=== PATIENT | male | born 1950 ===

== ENCOUNTER 2022-02-09 09:24 | Emergency (ER) | payer OTHER ==
[~2022-02-09] VITALS: Ht 172.7 cm; Wt 80.7 kg
[~2022-02-09 09:24] MED LIST: B COMPLETE1 TAB; LIPITOR20 MG; METOPROLOL SUC100 MG; NORVASC5 MG; SIDEROL TABLET1 TAB; SYNTHROID75 MCG
[2022-02-09] MEDS ORDERED: MEDROLPACK PO (14:52)
[2022-02-09] MEDS ORDERED: KETO10TA2 PO (14:52)
[2022-02-09] MEDS ORDERED: NORFLEX100MG PO (14:52)
== END 2022-02-09 15:00 | disposition home or self-care (01) ==
LOC: ER 09:24
DX: M54.89 Other dorsalgia (principal); I10 Essential (primary) hypertension; E03.9 Hypothyroidism, unspecified